=== PATIENT | male | born 1950 | race Caucasian/White ===

== ENCOUNTER 2018-12-15 20:08 | Emergency (ER) | payer MEDICARE, BC ==
[2018-12-15] MEDS ORDERED: Diphtheria,Pertussis(Acell),Tetanus Vaccine 0.5 ML SDV inactive IM ONE (20:39)
--- NOTE | 2018-12-15 20:45 | EDM.PDOC ---
ED HPI GENERAL MEDICAL PROBLEM - General Chief Complaint: General Stated Complaint: ARM LACERATION Time Seen by Provider: 12/15/18 20:10 Source of Information: Reports: Patient History Limitations: Reports: No Limitations - History of Present Illness INITIAL COMMENTS - FREE TEXT/NARRATIVE: According to patient he was trying to get some out to barbecue. and he was walking into the back yard. Does not know if he hit anything while going down the [place] steps. fell backward and hit his right forearm against the porch door and sustained a slice cut over the mid forearm. the wound was bleeding. He applied some clean towel and applied pressure over the wound and came into the emergency room. . In the emergency room, he is not actively bleeding. Does not have any pain in his forearm. He hit his head over the porch door, but no loss of consciousness. . No headache or nausea. Pt's last tetanus was 2006. Onset: Today Onset Date: 12/15/18 Onset Time: 19:30 Location: Reports: Upper Extremity, Right Quality: Reports: Ache Severity: Mild Improves with: Reports: None Worsens with: Reports: None Associated Symptoms: Denies: Confusion, Chest Pain, Cough, Diaphoresis, Fever/ Chills, Headaches, Nausea/Vomiting, Rash, Seizure, Shortness of Breath, Syncope , Weakness Right Arm Pain Score (Numeric/FACES): 5 - Related Data Allergies Allergy/AdvReac Type Severity Reaction Status Date / Time No Known Allergies Allergy Verified 12/15/18 20:34 Home Meds: Home Meds Lisinopril 10 mg PO DAILY 12/15/18 [History] atorvaSTATin Calcium [Lipitor] 20 mg PO DAILY 12/15/18 [History] ED ROS GENERAL - Review of Systems Review Of Systems: See Below Constitutional: Denies: Fever, Chills HEENT: Denies: Contact Lenses, Rhinitis, Throat Pain, Throat Swelling Respiratory: Denies: Shortness of Breath, Cough, Sputum Cardiovascular: Denies: Chest Pain, Lightheadedness GI/Abdominal: Denies: Abdominal Pain, Nausea, Vomiting : Denies: Dysuria, Frequency Musculoskeletal: Denies: Joint Pain, Joint Swelling Skin: Reports: Wound. Denies: Bruising, Pruritis, Rash Neurological: Denies: Confusion, Dizziness, Headache, Numbness, Tingling ED EXAM, GENERAL - Physical Exam Exam: See Below Exam Limited By: No Limitations General Appearance: Alert, WD/WN, No Apparent Distress Eye Exam: Bilateral Eye: EOMI Ears: Normal External Exam, Normal Canal, Hearing Grossly Normal, Normal TMs Ear Exam: Bilateral Ear: Auricle Normal, Canal Normal, TM normal Nose: Normal Inspection, Normal Mucosa, No Blood Throat/Mouth: Normal Inspection, Normal Lips, Normal Teeth, Normal Gums, Normal Oropharynx, Normal Voice, No Airway Compromise Head: Atraumatic, Normocephalic Neck: Normal Inspection, Supple, Non-Tender, Full Range of Motion Respiratory/Chest: No Respiratory Distress, Lungs Clear, Normal Breath Sounds, No Accessory Muscle Use, Chest Non-Tender Cardiovascular: Normal Peripheral Pulses, Regular Rate, Rhythm, No Edema, No Gallop, No JVD, No Murmur, No Rub Neurological: Alert, Oriented, CN II-XII Intact, Normal Cognition, Normal Gait, Normal Reflexes, No Motor/Sensory Deficits Skin Exam: Warm, Other (Right forearm: there is a linear laceation over the mid forearm. About 7cm in lenght. The laceration is sliced. The depth is all throguh the subcutaneous tissue, but no extension into fascia or tendon. Pt does have good ROM of the wrist and elbow.) ED GENERAL MEDICAL PROCEDURES - Laceration/Wound Repair Right Arm Lac/wound length in cm: 7 (right forearm ventral aspect) Appearance: Irregular Distal NVT: No Tendon Injury Anesthetic Type: Local Local Anesthesia - Lidocaine (Xylocaine): 0.5% with EPI Local Anesthetic Volume: 3cc Skin Prep: Chlorhexidine (Hibiciens) Saline irrigation (cc's): 50 Exploration/Debridement/Repair: Wound Explored Closed with: Sutures Suture Size: 3-0 # of Sutures: 8 Suture Type: Other (ethilon) Suture Size: 3-0 # of Sutures: 6 Repaired with: Vicryl Sterile Dressing Applied: Provider Tetanus Status Addressed: Yes Complications: No Course - Vital Signs Text/Narrative:: Pt has 7 cm long irregular laceration over the right forearm. Th wound is into subcutaneous tissue. Fascia and flexor tendon exposed, but no tear.After consent was obtained. The wound was closed in layer. Pt did receive tetanus today. Pt advised to keep the wound clean and avoid wetting the wound for 48 hrs. After 48 hrs he can shower and have running water on it. Do not scrub the wound. Dab it dry and apply thin film of antibiotic ointment and keep it covered. Keep the arm elevated for 24 hrs. Motrin 800mg 3 times daily as need for pain. Daily simple dressing. As the wound extends into fascial plane, I have empirically covered patient with keflex 500mg 4 times daily. Suture removal in 10 days. Last Recorded V/S: Last Vital Signs Temp 98.2 F 12/15/18 20:23 Pulse 60 12/15/18 20:23 Resp 18 12/15/18 20:23 BP 126/75 12/15/18 20:23 Pulse Ox 97 12/15/18 20:23 - Orders/Labs/Meds Orders: Active Orders 24 hr Category Date Time Status Vaccines to be Administered [RC] PER UNIT ROUTINE Care 12/15/18 20:39 Ordered Meds: Medications Discontinued Medications Generic Name Dose Route Start Last Admin Trade Name Freq PRN Reason Stop Dose Admin Diphtheria/Tetanus/Acell Pertussis 0.5 ml 12/15/18 20:39 Boostrix IM 12/15/18 20:40 .ONCE ONE Departure - Departure Time of Disposition: 21:45 Disposition: Home, Self-Care 01 Condition: Fair Clinical Impression: Forearm laceration - Discharge Information *PRESCRIPTION DRUG MONITORING PROGRAM REVIEWED*: Not Applicable *COPY OF PRESCRIPTION DRUG MONITORING REPORT IN PATIENT CLAUDIA: Not Applicable Instructions: Laceration Care, Adult, Wound Care, Adult Forms: ED Department Discharge Additional Instructions: Discharge home. Apply ice pack to wound this evening. Keep arm elevated while you sleep. Keep wound clean and dry. Monitor for signs of infection. Pain or swelling in right hand, return to the hospital. Tylenol 650mg or ibuprofen 800mg for pain. Return to clinic to have sutures removed in 10 days. Tetanus in right deltoid in ER. Follow up with primary provider as needed. Call or return to the ER if you have any questions or concerns. - Problem List & Annotations (1) Forearm laceration SNOMED Code(s): 643729997 Code(s): S51.819A - LACERATION WITHOUT FOREIGN BODY OF UNSP FOREARM, INIT ENCNTR Status: Acute Current Visit: Yes - Problem List Review Problem List Initiated/Reviewed/Updated: Yes - My Orders Last 24 Hours: My Active Orders 12/15/18 20:39 Vaccines to be Administered [RC] PER UNIT ROUTINE - Assessment/Plan Last 24 Hours: My Active Orders 12/15/18 20:39 Vaccines to be Administered [RC] PER UNIT ROUTINE Assessment:: Right forearm laceration Plan: Pt has 7 cm long irregular laceration over the right forearm. Th wound is into subcutaneous tissue. Fascia and flexor tendon exposed, but no tear.After consent was obtained. The wound was closed in layer. Pt advised to keep the wound clean and avoid wetting the wound for 48 hrs. After 48 hrs he can shower and have running water on it. Do not scrub the wound. Dab it dry and apply thin film of antibiotic ointment and keep it covered. Keep the arm elevated for 24 hrs. Motrin 800mg 3 times daily as need for pain. Daily simple dressing. As the wound extends into fascial plane, I have empirically covered patient with keflex 500mg 4 times daily. Suture removal in 10 days.
[2018-12-15] MEDS ORDERED: Lidocaine 2% with EPINEPHrine 1:100,000 20 ML MDV ONE (20:55)
[2018-12-15] MEDS ORDERED: Cephalexin 500 MG Cap ONE (20:55)
== END 2018-12-15 21:50 | disposition home or self-care (01) ==
LOC: LB.ED 20:08
DX: S51.811A Laceration without foreign body of right forearm, initial encounter (principal); Z23 Encounter for immunization; Z79.899 Other long term (current) drug therapy; W19.XXXA Unspecified fall, initial encounter; W26.8XXA Contact with other sharp object(s), not elsewhere classified, initial encounter
CPT/HCPCS: 12002; 90471; 90715; 99282; A9270